=== PATIENT | male | born 1950 | race Caucasian/White ===

== ENCOUNTER 2019-01-24 11:28 | Emergency (ER) | payer MEDICARE ==
[~2019-01-24] VITALS: Ht 172.7 cm; Wt 64.0 kg
[2019-01-24 11:32] VITALS: Ht 172.7 cm; Wt 64.0 kg
[2019-01-24] MEDS ORDERED: BISACODYL 10 MG SUPP PR ONE (12:30)
[2019-01-24] MEDS ORDERED: MAGN400O19 PO (13:11)
[2019-01-24] MEDS ORDERED: HC30CR25 TOP (13:11)
--- NOTE | 2019-01-24 13:14 | ERD ---
ER Documentation Chief Complaint Chief Complaint pt is bib family with c/o constipation for a few days HPI 68-year-old male presents with 2-day complaints of constipation. He is passing gas. Denies blood. His pain and irritation around his rectal area as well. Patient has a history of urinary retention. He has a Pa catheter which is draining adequately. Denies abdominal pain, fevers, vomiting. ROS All systems reviewed and are negative except as per history of present illness. Medications Home Meds Active Scripts Hydrocortisone* Topical (Hydrocortisone* Topical) 2.5%-28.3 Gm Cream..g., 1 APPLIC TOP BID for 10, #1 TUB Prov:CHANDRA MENDES MD 01/24/19 Magnesium Hydroxide* (Milk Of Magnesia*) 400 Mg/5 Ml Oral.susp, 30 ML PO BID for constipation for 10 Days, ML Prov:CHANDRA MENDES MD 01/24/19 Allergies Allergies: Coded Allergies: No Known Allergy (Unverified , 01/24/19) PMhx/Soc Medical and Surgical Hx: pt denies Medical Hx History of Surgery: Yes (prostate) Anesthesia Reaction: No Hx Neurological Disorder: No Hx Respiratory Disorders: No Hx Cardiac Disorders: Yes (htn; cholesterol) Hx Psychiatric Problems: No 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 Neck: Full range of motion. No meningismus. Resp: Clear to auscultation bilaterally Cardio: Regular rate and rhythm, no murmurs Abd: Soft, non tender, non distended. Normal bowel sounds. Rectal exam shows external hemorrhoids without erythema, bleeding or evidence of thrombosis. There is no erythema, fluctuance. No appreciable masses. There is soft stool in the vault after suppository. Skin: No petechiae or rashes Back: No midline or flank tenderness Ext: No cyanosis, or edema Neur: Awake and alert Psych: Normal Mood and Affect Results 24 hrs Current Medications Medications Dose Sig/Joaquina Start Time Status Last (Trade) Ordered Route PRN Stop Time Admin Dose Reason Admin Bisacodyl 10 mg ONCE ONCE 01/24/19 DC 01/24/19 ([place] 12:30 13:00 Supp) 01/24/19 12:31 Procedures/MDM Patient presents with a 2-day history of constipation. There is no signs of obstruction or masses on exam. Does have external hemorrhoids. Will treat with milk of magnesia, hydrocortisone, primary care follow-up and return precautions for vomiting, fevers, abdominal pain, obstipation, new worsening symptoms. The patient was stable with no new complaints during the ER course. Clinically, th ere is no current evidence to suggest meningitis, sepsis, acute abdomen, pneumonia, stroke, acute coronary syndrome, pulmonary embolism, aortic dissection or any other emergent condition appearing to require further evaluation or hospitalization. Patient counseled regarding my diagnostic impression and care plan. Prior to discharge all questions answered. Pt agrees with treatment plan and understands strict return precautions. Pt is instructed to follow up with primary care provider within 24-48 hours. Precautionary instructions provided including instructions to return to the ER if not improving or for any worsening or changing symptoms or concerns. Disclaimer: Inadvertent spelling and grammatical errors are likely due to EHR/dictation software use and do not reflect on the overall quality of patient care. Also, please note that the electronic time recorded on this note does not necessarily reflect the actual time of the patient encounter. Departure Diagnosis: Primary Impression: Hemorrhoids Hemorrhoid type: unspecified Qualified Codes: K64.9 - Unspecified hemorrhoids Additional Impression: Constipation Constipation type: unspecified constipation type Qualified Codes: K59.00 - Constipation, unspecified Condition: Stable Patient Instructions: Constipation (Adult), Hemorrhoids Additional Instructions: Cheque otro vez con garduno doctor primario en el proximo robbins or regresa para mas o nueva simptomas- dolgannonito, filalo. CHANDRA MENDES MD Jan 24, 2019 13:14
[2019-01-24 13:39] VITALS: BP 142/72; PULSE 77; RESP 20
== END 2019-01-24 14:12 | disposition home or self-care (01) ==
LOC: FTE 11:28
DX: K64.9 Unspecified hemorrhoids (principal); I10 Essential (primary) hypertension
CPT/HCPCS: 99284

== ENCOUNTER 2019-02-12 10:07 | Emergency (ER) | payer MEDICARE ==
[~2019-02-12] VITALS: Wt 72.7 kg
[~2019-02-12 10:07] MED LIST: HC30CR25 TOP; MAGN400O19 PO
[2019-02-12 10:17] VITALS: BP 123/66; PULSE 75; RESP 20
[2019-02-12] MEDS ORDERED: LORA1TAB PO (11:09)
[2019-02-12] MEDS ORDERED: IBUP-1542 PO (11:09)
--- NOTE | 2019-02-14 17:24 | ERD ---
ER Documentation Chief Complaint Chief Complaint l. back pain HPI 68-year-old male with history of sciatica presents complaint of left buttock pain rating down to his leg. States pain is going on for 3 months. In addition patient states that his anxiety is requesting anxiety medication. Patient is ambulatory. Denies chest pain, SOB, flank pain, dsyuria, hematuria, saddle numbness, incontinence, pain worse at night or when supine, weight loss, night sweats, fatigue, focal neurological defecits, recent bacterial infection, IV drug use, or immunosuppression. Denies allergies. Denies surgeries. Denies ETOH, drug, or tobacco use. ROS All systems reviewed and are negative except as per history of present illness. Medications Home Meds Active Scripts Ibuprofen* (Motrin*) 600 Mg Tab, 600 MG PO Q6, #30 TAB Prov:MIGUELANGEL HARMON 02/12/19 Lorazepam* (Lorazepam*) 1 Mg Tablet, 1 MG PO Q8, #10 TAB Prov:MIGUELANGEL HARMON 02/12/19 Hydrocortisone* Topical (Hydrocortisone* Topical) 2.5%-28.3 Gm Cream..g., 1 APPLIC TOP BID for 10, #1 TUB Prov:CHANDRA MENDES MD 01/24/19 Magnesium Hydroxide* (Milk Of Magnesia*) 400 Mg/5 Ml Oral.susp, 30 ML PO BID for constipation for 10 Days, ML Prov:CHANDRA MENDES MD 01/24/19 Allergies Allergies: Coded Allergies: No Known Allergy (Unverified , 01/24/19) PMhx/Soc History of Surgery: Yes (prostate) Anesthesia Reaction: No Hx Neurological Disorder: No Hx Respiratory Disorders: No Hx Cardiac Disorders: Yes (htn; cholesterol) Hx Psychiatric Problems: No 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 Neck: Full range of motion. No meningismus. Resp: Clear to auscultation bilaterally Cardio: Regular rate and rhythm, no murmurs Abd: Soft, non tender, non distended. Normal bowel sounds Skin: No petechiae or rashes Back: No midline or flank tenderness. Full range of motion. No bony deformities or step-offs noted. Ext: No cyanosis, or edema. Distal pulses and sensation intact. 5/5 strength in lower extremities bilaterally. No saddle numbness. Positive straight leg raise on left side. Neur: Awake and alert Psych: Normal Mood and Affect Procedures/MDM MDM: Patient's presentation consistent with sciatica. Per patient's request, patient is also given short course of medication for anxiety. MDM: I have low suspicion for epidural abscess, cauda equina, abdominal aortic aneurysm, pyelonephritis, aortic dissection, spinal fracture, or other emergent conditions based on patient history and exam findings. Patient told if they experience leg weakness or numbness, or incontinence they need to return to the ER immediately. At this time, patient is stable for discharge and outpatient management. I have instructed the patient to follow-up with his/her primary care physician in 1-2 days. I have discussed with the patient the possibility of needing to see a specialist for further workup and imaging studies if symptoms persist. I have instructed the patient to promptly return to the ER for any new or worsening symptoms including but not limited to increased pain, fever, nausea, vomiting, weakness or LOC. The patient and/or family expressed understanding of and agreement with this plan. All questions were answered. Home care instructions were provided. Communication with patient both during the exam and instructions for discharge were performed with using a buckle assembler . Patient gave verbal confirmation to the practitioner, through the buckle assembler, that they understood everything that was being said to them. DISCLAIMER: Inadvertent spelling and grammatical errors are likely due to EHR/dictation software use and do not reflect on the overall quality of patient care. Also, please note that the electronic time recorded on this note does not necessarily reflect the actual time of the patient encounter. Departure Diagnosis: Primary Impression: Sciatica Additional Impression: Anxiety Condition: Stable Patient Instructions: Understanding Sciatica, Back Pain W/ Sciatica Referrals: SAI WHITFIELD MD [facility] YOU HAVE RECEIVED A MEDICAL SCREENING EXAM AND THE RESULTS INDICATE THAT YOU DO NOT HAVE A CONDITION THAT REQUIRES URGENT TREATMENT IN THE EMERGENCY DEPARTMENT. FURTHER EVALUATION AND TREATMENT OF YOUR CONDITION CAN WAIT UNTIL YOU ARE SEEN IN YOUR DOCTORS OFFICE WITHIN THE NEXT 1-2 DAYS. IT IS YOUR RESPONSIBILITY TO MAKE AN APPOINTMENT FOR FOLOW-UP CARE. IF YOU HAVE A PRIMARY DOCTOR --you should call your primary doctor and schedule an appointment IF YOU DO NOT HAVE A PRIMARY DOCTOR YOU CAN CALL OUR PHYSICIAN REFERRAL HOTLINE AT IF YOU CAN NOT AFFORD TO SEE A PHYSICIAN YOU CAN CHOSE FROM THE FOLLOWING FORMERLY [facility] [id number] [facility]. [facility] [address] [facility] [facility] [address] [facility] [address] [facility] [address] [facility]. [facility]. [address] Additional Instructions: FOLLOW UP WITH YOUR PRIMARY CARE PHYSICIAN TOMORROW.Return to this facility if you are not improving as expected. MIGUELANGEL HARMON Feb 14, 2019 17:24
== END 2019-02-12 11:50 | disposition home or self-care (01) ==
LOC: FTE 10:07
DX: M54.42 Lumbago with sciatica, left side (principal); F41.9 Anxiety disorder, unspecified; I10 Essential (primary) hypertension; Z85.9 Personal history of malignant neoplasm, unspecified
CPT/HCPCS: 99283